=== PATIENT | female | born 1970 | race African-American/Black ===

== ENCOUNTER 2017-03-26 09:50 | Day surgery (SDC) | payer OTHER ==
[~2017-03-26] VITALS: Ht 149.9 cm; Wt 105.2 kg
[~2017-03-26 09:50] MED LIST: BAL B-1001 EACH PO; METFORMIN HCL500 M4 PO; TENORMIN50 MG PO; ZYRTEC10 M3 PO
[2017-03-26 10:15] VITALS: BP 143/85
[2017-03-26] MEDS ORDERED: ENDOCET 5-3251 EACH PO (13:21)
[2017-03-26] MEDS ORDERED: IBUPROFEN800 MG PO (13:21)
[2017-03-26 15:01] VITALS: BP 113/67
[2017-03-26 16:10] VITALS: BP 123/70
== END 2017-03-26 16:25 | disposition home or self-care (01) ==
LOC: SDC 09:50
DX: D25.1 Intramural leiomyoma of uterus (principal); N80.0 Endometriosis of uterus; N93.8 Other specified abnormal uterine and vaginal bleeding; I10 Essential (primary) hypertension; E66.9 Obesity, unspecified; Z68.43 Body mass index [BMI] 50.0-59.9, adult; E28.2 Polycystic ovarian syndrome
CPT/HCPCS: 88307; J0131; J0690; J1100; J1170; J1885; J2250; J2405; J2550; J2710; J2765; J3010